=== PATIENT | male | born 1995 ===

== ENCOUNTER 2017-03-31 23:07 | Emergency (ER) | payer SELFPAY ==
[~2017-03-31] VITALS: Ht 182.9 cm; Wt 131.5 kg
[2017-03-31 23:11] VITALS: Ht 182.9 cm; Wt 131.5 kg
[2017-04-01] MEDS ORDERED: IBUPROFEN 600 MG TAB PO ONE (00:30)
[2017-04-01] MEDS ORDERED: AZITHROMYCIN 250 MG TAB PO ONE (01:30)
[2017-04-01] MEDS ORDERED: CEFTRIAXONE 250 MG INJ IM ONE (01:30)
--- NOTE | 2017-04-01 01:39 | RADRPT ---
PROCEDURE: Ultrasound of the scrotum. CLINICAL INDICATION: Pain. TECHNIQUE: Ultrasound of the scrotum was performed utilizing color Doppler flow imaging COMPARISON: There are no similar studies submitted for comparison. FINDINGS: Right testis: Size (cm): 4 x 2.5 x 2.9 Echotexture: Normal Doppler flow: Present Epididymal head: There is heterogeneous attenuation of the right epididymis with some increased vasc ular flow. Hydrocele: Mild hydrocele is present. Varicocele: Mild varicocele is present. Left testis: Size (cm): 4.8 x 2.1 x 2.8 Echotexture: Normal Doppler flow: Present Epididymal head: There is heterogeneous attenuation of the left epididymis with some increased vascu lar flow. Hydrocele: Mild hydrocele is present. Varicocele: Mild varicoceles present. IMPRESSION: No evidence of testicular torsion. Heterogeneous echogenicity of the epididymi with increased vascular flow suggestive of epididymitis. Small bilateral varicoceles and hydroceles. RPTAT: HIKT .Donnie Pierre MD, MD Date Time Electronically viewed and signed by .Donnie Pierre MD, on 04/01/2017 01:39 .T/
[2017-04-01] MEDS ORDERED: DOXY100T20 PO (01:45)
[2017-04-01] MEDS ORDERED: NAPR-260 PO (01:45)
--- NOTE | 2017-04-03 01:31 | ERD ---
ER Documentation Chief Complaint Chief Complaint right testicular pain/swelling upon waking up this am at 0530 HPI Patient is a 21-year-old male presenting to the emergency department with complaints of right testicular pain and swelling which he noticed when he first woke up this morning at 530. He denies trauma. He does have multiple sexual partners and he wears protection only sometimes. Symptoms are worse with movement. He denies discharge, hematuria, fevers, chills, or other symptoms currently. Pain is intermittent and aching in quality. ROS All systems reviewed and are negative except as per history of present illness. Medications Home Meds Active Scripts Doxycycline Hyclate* (Doxycycline Hyclate*) 100 Mg Tablet.dr, 100 MG PO BID for 10 Days, #20 TAB Prov:CARA BURKS PA-C 04/01/17 Naproxen* (Naprosyn*) 500 Mg Tablet, 500 MG PO BID Y for PAIN AND/OR INFLAMMATION, #30 TAB Prov:CARA BURKS PA-C 04/01/17 Allergies Allergies: Coded Allergies: No Known Drug Allergies (Verified Allergy, Unknown, 03/31/17) Physical Exam Vitals Vital Signs Date Time Temp Pulse Resp B/P Pulse Ox O2 Delivery O2 Flow Rate FiO2 03/31/17 23:11 99.9 79 20 144/96 98 Physical Exam Const: Nontoxic, well-appearing male in no acute distress. Head: Atraumatic Eyes: Normal Conjunctiva ENT: Normal External Ears, Nose and Mouth. Neck: Full range of motion..~ No meningismus. Abd: Soft, non tender, non distended. Normal bowel sounds Exam: Scrotum: Normal Testes/Epid: The right testicle is hard and slightly tender to palpation. Lymph: No inguinal lymphadenopathy Discharge: None Skin: No petechiae or rashes Ext: No cyanosis, or edema Neur: Awake and alert Psych: Normal Mood and Affect Results 24 hrs Current Medications Medications (Trade) Dose Ordered Sig/Lona Route PRN Reason Start Time Stop Time Status Last Admin Dose Admin Ibuprofen (Motrin) 600 mg ONCE ONCE PO 04/01/17 00:30 04/01/17 00:31 DC 04/01/17 01:15 Azithromycin (Zithromax) 1,000 mg ONCE ONCE PO 04/01/17 01:30 04/01/17 01:31 DC 04/01/17 01:41 Ceftriaxone Sodium (Rocephin) 250 mg ONCE ONCE IM 04/01/17 01:30 04/01/17 01:31 DC 04/01/17 01:38 Procedures/MDM 21-year-old male presenting to the emergency department with complaints of right testicle pain. Physical examination does show some tenderness palpation of the right testicle. The patient was given ibuprofen in the department he is feeling improved prior to discharge. He was also treated prophylactically for sexually transmitted infections with azithromycin and Rocephin. Testicular ultrasound showed no evidence of testicular torsion. There was heterogeneous echogenicity of the epididymides with increased vascular flow suggestive of epididymitis. Small bilateral varicoceles and hydroceles. Patient was stable for discharge and outpatient management. He was given copies of his imaging results. He agreed with the discharge plan and diagnosis. No evidence of life-threatening pathology at time of discharge. Pt/family in agreement with discharge plan/diagnosis. Pt/family advised to return immediately with any new or worsening symptoms. Follow-up with primary care physician within the next 1-2 days. Disclaimer: Inadvertent spelling and grammatical errors are likely due to EHR/ dictation software use and do not reflect on the overall quality of patient care. Also, please note that the electronic time recorded on this note does not necessarily reflect the actual time of the patient encounter. PROCEDURE: Ultrasound of the scrotum. CLINICAL INDICATION: Pain. TECHNIQUE: Ultrasound of the scrotum was performed utilizing color Doppler flow imaging COMPARISON: There are no similar studies submitted for comparison. FINDINGS: Right testis: Size (cm): 4 x 2.5 x 2.9 Echotexture: Normal Doppler flow: Present Epididymal head: There is heterogeneous attenuation of the right epididymis with some increased vascular flow. Hydrocele: Mild hydrocele is present. Varicocele: Mild varicocele is present. Left testis: Size (cm): 4.8 x 2.1 x 2.8 Echotexture: Normal Doppler flow: Present Epididymal head: There is heterogeneous attenuation of the left epididymis with some increased vascular flow. Hydrocele: Mild hydrocele is present. Varicocele: Mild varicoceles present. IMPRESSION: No evidence of testicular torsion. Heterogeneous echogenicity of the epididymi with increased vascular flow suggestive of epididymitis. Small bilateral varicoceles and hydroceles. RPTAT: HIKT .Donnie Pierre MD, Date Time Electronically viewed and signed by .Donnie Pierre MD, on 04/01/2017 01:39 Departure Diagnosis: Primary Impression: Epididymitis Condition: Fair Patient Instructions: Epididymitis Referrals: RONAN BROWN MD [facility] YOU HAVE RECEIVED A MEDICAL SCREENING EXAM AND THE RESULTS INDICATE THAT YOU DO NOT HAVE A CONDITION THAT REQUIRES URGENT TREATMENT IN THE EMERGENCY DEPARTMENT. FURTHER EVALUATION AND TREATMENT OF YOUR CONDITION CAN WAIT UNTIL YOU ARE SEEN IN YOUR DOCTORS OFFICE WITHIN THE NEXT 1-2 DAYS. IT IS YOUR RESPONSIBILITY TO MAKE AN APPOINTMENT FOR FOLOW-UP CARE. IF YOU HAVE A PRIMARY DOCTOR --you should call your primary doctor and schedule an appointment IF YOU DO NOT HAVE A PRIMARY DOCTOR YOU CAN CALL OUR PHYSICIAN REFERRAL HOTLINE AT IF YOU CAN NOT AFFORD TO SEE A PHYSICIAN YOU CAN CHOSE FROM THE FOLLOWING [facility] [address] [facility]. [facility] [address] [facility] [facility] [address] [facility] [address] [facility]. [facility] [address] [facility]. [facility]. [address] Additional Instructions: Call your primary care doctor TOMORROW for an appointment during the next 1-2 days.See the doctor sooner or return here if your condition worsens before your appointment time. CARA BURKS PA-C Apr 03, 2017 01:31
--- NOTE | 2017-04-03 01:31 | ERD ---
ER Documentation Chief Complaint Chief Complaint right testicular pain/swelling upon waking up this am at 0530 HPI Patient is a 21-year-old male presenting to the emergency department with complaints of right testicular pain and swelling which he noticed when he first woke up this morning at 530. He denies trauma. He does have multiple sexual partners and he wears protection only sometimes. Symptoms are worse with movement. He denies discharge, hematuria, fevers, chills, or other symptoms currently. Pain is intermittent and aching in quality. ROS All systems reviewed and are negative except as per history of present illness. Medications Home Meds Active Scripts Doxycycline Hyclate* (Doxycycline Hyclate*) 100 Mg Tablet.dr, 100 MG PO BID for 10 Days, #20 TAB Prov:CARA BURKS PA-C 04/01/17 Naproxen* (Naprosyn*) 500 Mg Tablet, 500 MG PO BID Y for PAIN AND/OR INFLAMMATION, #30 TAB Prov:CARA BURKS PA-C 04/01/17 Allergies Allergies: Coded Allergies: No Known Drug Allergies (Verified Allergy, Unknown, 03/31/17) Physical Exam Vitals Vital Signs Date Time Temp Pulse Resp B/P Pulse Ox O2 Delivery O2 Flow Rate FiO2 03/31/17 23:11 99.9 79 20 144/96 98 Physical Exam Const: Nontoxic, well-appearing male in no acute distress. Head: Atraumatic Eyes: Normal Conjunctiva ENT: Normal External Ears, Nose and Mouth. Neck: Full range of motion..~ No meningismus. Abd: Soft, non tender, non distended. Normal bowel sounds Exam: Scrotum: Normal Testes/Epid: The right testicle is hard and slightly tender to palpation. Lymph: No inguinal lymphadenopathy Discharge: None Skin: No petechiae or rashes Ext: No cyanosis, or edema Neur: Awake and alert Psych: Normal Mood and Affect Results 24 hrs Current Medications Medications (Trade) Dose Ordered Sig/Lona Route PRN Reason Start Time Stop Time Status Last Admin Dose Admin Ibuprofen (Motrin) 600 mg ONCE ONCE PO 04/01/17 00:30 04/01/17 00:31 DC 04/01/17 01:15 Azithromycin (Zithromax) 1,000 mg ONCE ONCE PO 04/01/17 01:30 04/01/17 01:31 DC 04/01/17 01:41 Ceftriaxone Sodium (Rocephin) 250 mg ONCE ONCE IM 04/01/17 01:30 04/01/17 01:31 DC 04/01/17 01:38 Procedures/MDM 21-year-old male presenting to the emergency department with complaints of right testicle pain. Physical examination does show some tenderness palpation of the right testicle. The patient was given ibuprofen in the department he is feeling improved prior to discharge. He was also treated prophylactically for sexually transmitted infections with azithromycin and Rocephin. Testicular ultrasound showed no evidence of testicular torsion. There was heterogeneous echogenicity of the epididymides with increased vascular flow suggestive of epididymitis. Small bilateral varicoceles and hydroceles. Patient was stable for discharge and outpatient management. He was given copies of his imaging results. He agreed with the discharge plan and diagnosis. No evidence of life-threatening pathology at time of discharge. Pt/family in agreement with discharge plan/diagnosis. Pt/family advised to return immediately with any new or worsening symptoms. Follow-up with primary care physician within the next 1-2 days. Disclaimer: Inadvertent spelling and grammatical errors are likely due to EHR/ dictation software use and do not reflect on the overall quality of patient care. Also, please note that the electronic time recorded on this note does not necessarily reflect the actual time of the patient encounter. PROCEDURE: Ultrasound of the scrotum. CLINICAL INDICATION: Pain. TECHNIQUE: Ultrasound of the scrotum was performed utilizing color Doppler flow imaging COMPARISON: There are no similar studies submitted for comparison. FINDINGS: Right testis: Size (cm): 4 x 2.5 x 2.9 Echotexture: Normal Doppler flow: Present Epididymal head: There is heterogeneous attenuation of the right epididymis with some increased vascular flow. Hydrocele: Mild hydrocele is present. Varicocele: Mild varicocele is present. Left testis: Size (cm): 4.8 x 2.1 x 2.8 Echotexture: Normal Doppler flow: Present Epididymal head: There is heterogeneous attenuation of the left epididymis with some increased vascular flow. Hydrocele: Mild hydrocele is present. Varicocele: Mild varicoceles present. IMPRESSION: No evidence of testicular torsion. Heterogeneous echogenicity of the epididymi with increased vascular flow suggestive of epididymitis. Small bilateral varicoceles and hydroceles. RPTAT: HIKT .Donnie Pierre MD, Date Time Electronically viewed and signed by .Donnie Pierre MD, on 04/01/2017 01:39 Departure Diagnosis: Primary Impression: Epididymitis Condition: Fair Patient Instructions: Epididymitis Referrals: RONAN BROWN MD [facility] YOU HAVE RECEIVED A MEDICAL SCREENING EXAM AND THE RESULTS INDICATE THAT YOU DO NOT HAVE A CONDITION THAT REQUIRES URGENT TREATMENT IN THE EMERGENCY DEPARTMENT. FURTHER EVALUATION AND TREATMENT OF YOUR CONDITION CAN WAIT UNTIL YOU ARE SEEN IN YOUR DOCTORS OFFICE WITHIN THE NEXT 1-2 DAYS. IT IS YOUR RESPONSIBILITY TO MAKE AN APPOINTMENT FOR FOLOW-UP CARE. IF YOU HAVE A PRIMARY DOCTOR --you should call your primary doctor and schedule an appointment IF YOU DO NOT HAVE A PRIMARY DOCTOR YOU CAN CALL OUR PHYSICIAN REFERRAL HOTLINE AT IF YOU CAN NOT AFFORD TO SEE A PHYSICIAN YOU CAN CHOSE FROM THE FOLLOWING [facility] [address] [facility]. [facility] [address] [facility] [address] [facility]. [facility] [address] [facility] [facility] [address] [facility]. [facility]. [address] Additional Instructions: Call your primary care doctor TOMORROW for an appointment during the next 1-2 days.See the doctor sooner or return here if your condition worsens before your appointment time. CARA BURKS PA-C Apr 03, 2017 01:31
--- NOTE | 2017-04-03 01:31 | ERD ---
ER Documentation Chief Complaint Chief Complaint right testicular pain/swelling upon waking up this am at 0530 HPI Patient is a 21-year-old male presenting to the emergency department with complaints of right testicular pain and swelling which he noticed when he first woke up this morning at 530. He denies trauma. He does have multiple sexual partners and he wears protection only sometimes. Symptoms are worse with movement. He denies discharge, hematuria, fevers, chills, or other symptoms currently. Pain is intermittent and aching in quality. ROS All systems reviewed and are negative except as per history of present illness. Medications Home Meds Active Scripts Doxycycline Hyclate* (Doxycycline Hyclate*) 100 Mg Tablet.dr, 100 MG PO BID for 10 Days, #20 TAB Prov:CARA BURKS PA-C 04/01/17 Naproxen* (Naprosyn*) 500 Mg Tablet, 500 MG PO BID Y for PAIN AND/OR INFLAMMATION, #30 TAB Prov:CARA BURKS PA-C 04/01/17 Allergies Allergies: Coded Allergies: No Known Drug Allergies (Verified Allergy, Unknown, 03/31/17) Physical Exam Vitals Vital Signs Date Time Temp Pulse Resp B/P Pulse Ox O2 Delivery O2 Flow Rate FiO2 03/31/17 23:11 99.9 79 20 144/96 98 Physical Exam Const: Nontoxic, well-appearing male in no acute distress. Head: Atraumatic Eyes: Normal Conjunctiva ENT: Normal External Ears, Nose and Mouth. Neck: Full range of motion..~ No meningismus. Abd: Soft, non tender, non distended. Normal bowel sounds Exam: Scrotum: Normal Testes/Epid: The right testicle is hard and slightly tender to palpation. Lymph: No inguinal lymphadenopathy Discharge: None Skin: No petechiae or rashes Ext: No cyanosis, or edema Neur: Awake and alert Psych: Normal Mood and Affect Results 24 hrs Current Medications Medications (Trade) Dose Ordered Sig/Lona Route PRN Reason Start Time Stop Time Status Last Admin Dose Admin Ibuprofen (Motrin) 600 mg ONCE ONCE PO 04/01/17 00:30 04/01/17 00:31 DC 04/01/17 01:15 Azithromycin (Zithromax) 1,000 mg ONCE ONCE PO 04/01/17 01:30 04/01/17 01:31 DC 04/01/17 01:41 Ceftriaxone Sodium (Rocephin) 250 mg ONCE ONCE IM 04/01/17 01:30 04/01/17 01:31 DC 04/01/17 01:38 Procedures/MDM 21-year-old male presenting to the emergency department with complaints of right testicle pain. Physical examination does show some tenderness palpation of the right testicle. The patient was given ibuprofen in the department he is feeling improved prior to discharge. He was also treated prophylactically for sexually transmitted infections with azithromycin and Rocephin. Testicular ultrasound showed no evidence of testicular torsion. There was heterogeneous echogenicity of the epididymides with increased vascular flow suggestive of epididymitis. Small bilateral varicoceles and hydroceles. Patient was stable for discharge and outpatient management. He was given copies of his imaging results. He agreed with the discharge plan and diagnosis. No evidence of life-threatening pathology at time of discharge. Pt/family in agreement with discharge plan/diagnosis. Pt/family advised to return immediately with any new or worsening symptoms. Follow-up with primary care physician within the next 1-2 days. Disclaimer: Inadvertent spelling and grammatical errors are likely due to EHR/ dictation software use and do not reflect on the overall quality of patient care. Also, please note that the electronic time recorded on this note does not necessarily reflect the actual time of the patient encounter. PROCEDURE: Ultrasound of the scrotum. CLINICAL INDICATION: Pain. TECHNIQUE: Ultrasound of the scrotum was performed utilizing color Doppler flow imaging COMPARISON: There are no similar studies submitted for comparison. FINDINGS: Right testis: Size (cm): 4 x 2.5 x 2.9 Echotexture: Normal Doppler flow: Present Epididymal head: There is heterogeneous attenuation of the right epididymis with some increased vascular flow. Hydrocele: Mild hydrocele is present. Varicocele: Mild varicocele is present. Left testis: Size (cm): 4.8 x 2.1 x 2.8 Echotexture: Normal Doppler flow: Present Epididymal head: There is heterogeneous attenuation of the left epididymis with some increased vascular flow. Hydrocele: Mild hydrocele is present. Varicocele: Mild varicoceles present. IMPRESSION: No evidence of testicular torsion. Heterogeneous echogenicity of the epididymi with increased vascular flow suggestive of epididymitis. Small bilateral varicoceles and hydroceles. RPTAT: HIKT .Donnie Pierre MD, Date Time Electronically viewed and signed by .Donnie Pierre MD, on 04/01/2017 01:39 Departure Diagnosis: Primary Impression: Epididymitis Condition: Fair Patient Instructions: Epididymitis Referrals: RONAN BROWN MD [facility] YOU HAVE RECEIVED A MEDICAL SCREENING EXAM AND THE RESULTS INDICATE THAT YOU DO NOT HAVE A CONDITION THAT REQUIRES URGENT TREATMENT IN THE EMERGENCY DEPARTMENT. FURTHER EVALUATION AND TREATMENT OF YOUR CONDITION CAN WAIT UNTIL YOU ARE SEEN IN YOUR DOCTORS OFFICE WITHIN THE NEXT 1-2 DAYS. IT IS YOUR RESPONSIBILITY TO MAKE AN APPOINTMENT FOR FOLOW-UP CARE. IF YOU HAVE A PRIMARY DOCTOR --you should call your primary doctor and schedule an appointment IF YOU DO NOT HAVE A PRIMARY DOCTOR YOU CAN CALL OUR PHYSICIAN REFERRAL HOTLINE AT IF YOU CAN NOT AFFORD TO SEE A PHYSICIAN YOU CAN CHOSE FROM THE FOLLOWING [facility] [address] [facility]. [facility] [address] [facility] [address] [facility] [address] [facility] [facility] [address] [facility]. [facility]. [address] Additional Instructions: Call your primary care doctor TOMORROW for an appointment during the next 1-2 days.See the doctor sooner or return here if your condition worsens before your appointment time. CARA BURKS PA-C Apr 03, 2017 01:31
== END 2017-04-01 01:57 | disposition home or self-care (01) ==
LOC: FTE 23:07
DX: N45.1 Epididymitis (principal)
CPT/HCPCS: 76870; 96372; 99285; J0696